=== PATIENT | female | born 1975 | race African-American/Black ===

== ENCOUNTER 2018-05-17 05:54 | Inpatient (IN) ==
[2018-05-13 13:57] LABS: Basophils % 0.4 % (0.0-0.8); Eosinophils # 0.1 10*3/uL (0.0-0.87); Eosinophils % 1.6 % (0.00-10.9); Hematocrit 33.7 VOL% (35.7-47.0); Hemoglobin 10.2 GM/DL (12.0-16.0); Immature Granulocytes % 0.4 %; Immature Granulocytes Absolute 0.03 #; Lymphocytes % 26.7 % (21.3-54.2); Mean Corpuscular HGB Conc 30.3 GM/DL (32-36); Mean Corpuscular Hemoglobin 23 PG (27-34); Mean Corpuscular Volume 76.9 FL (87-102); Mean Platelet Volume 9.6 FL (9.6-12.0); Monocytes # 0.4 10*3/uL (0.11-0.8); Monocytes % 4.8 % (1.7-12.7); Neutrophils % 66.1 % (38.7-73.9); Platelet Count 441 T/CUMM (130-400); Red Blood Count 4.38 MC/CUMM (3.8-5.5); Red Cell Distribution Width 16.6 % (9.3-17.3); White Blood Count 7.5 T/CUMM (4-12)
[2018-05-13 14:03] LABS: Apearance,Urine CLEAR (Clear); Bilirubin,Urine Negative (Negative); Blood, Urine Negative (Negative); Glucose,Urine (UA) Negative (Negative); Ketones,Urine Negative (Negative); Mucus,Urine Occasional /LPF (Occasional); Nitrite,Urine Negative (Negative); Protein,Urine Negative; RBC,Urine <1 /HPF (0-4); Squamous Epithelial Cell,Urine Occasional /HPF (0-10); Urine Color Yellow (Yellow); Urine Specific Gravity 1.023 (1.001-1.035); Urine Urobilinogen < 2.0 EU/DL (0.2-1.0)
[2018-05-13 14:26] LABS: Alanine Aminotransferase 30 U/L (13-56); Albumin 3.3 G/DL (3.4-5.0); Alkaline Phosphatase 62 U/L (45-117); Aspartate Amino Transferase 20 U/L (0-37); Bilirubin,Total < 0.39 MG/DL (0.2-1.0); Blood Urea Nitrogen 12 MG/DL (7-18); Calcium 8.3 MG/DL (8.5-10.1); Cholesterol 207 MG/DL (50-200); Glucose 124 MG/DL (74-106); HDL Cholesterol 39 MG/DL (40-60); Osmolality,Calculated 279.4 MOS/KG (273-304); Potassium 3.6 MMOL/L (3.5-5.1); Risk Ratio 5.31; Sodium 140 MMOL/L (136-145); Total Protein 7.8 G/DL (6.4-8.3); Triglycerides 99 MG/DL (2-150); VLDL CHOLESTEROL 19.8 MG/DL
[2018-05-13 15:33] LABS: HIV Antigen/Antibody Result Nonreactive (Nonreactive)
[~2018-05-17 05:54] MED LIST: AMPICILLIN/SULBACTAM 3,000 MG VIAL ONE; AMPICILLIN/SULBACTAM 3,000 MG in SODIUM CHLORIDE 0.9% 100 ML IV ONE
[2018-05-17] MEDS ORDERED: LACTATED RINGERS 1,000 ML IV SCH (06:00)
[2018-05-17] MEDS ORDERED: AMPICILLIN/SULBACTAM 3,000 MG in SODIUM CHLORIDE 0.9% 100 ML IV ONE (06:30)
[2018-05-17] MEDS ORDERED: FAMOTIDINE 20 MG TABLET ONE (08:15)
[2018-05-17] MEDS ORDERED: DIAZEPAM 5 MG TABLET ONE (08:15)
[2018-05-17] MEDS ORDERED: DIAZEPAM 5 MG TABLET PO STA (08:18)
[2018-05-17] MEDS ORDERED: FAMOTIDINE 20 MG TABLET PO STA (08:18)
[2018-05-17] MEDS ORDERED: HYDROmorphone 2 MG/1 ML VIAL ONE (09:34)
[2018-05-17] MEDS ORDERED: SUGAMMADEX 200 MG/2 ML VIAL IV ONE (10:44)
[2018-05-17] MEDS ORDERED: DOCUSATE SODIUM 100 MG CAPSULE PO PRN (11:16)
[2018-05-17] MEDS ORDERED: ONDANSETRON 4 MG/2 ML VIAL IV PRN ×2 (11:16→12:05)
[2018-05-17] MEDS ORDERED: BENZOCAINE/MENTHOL LOZENGE 18/BOX PO PRN (11:16)
[2018-05-17] MEDS ORDERED: BISACODYL 10 MG SUPP RECTAL PRN (11:16)
[2018-05-17] MEDS ORDERED: MAGNESIUM HYDROXIDE SUSP 30 ML UDCUP PO PRN (11:16)
[2018-05-17] MEDS ORDERED: ACETAMINOPHEN 325 MG TABLET PO PRN (11:16)
[2018-05-17] MEDS ORDERED: ALBUTEROL/IPRATROPIUM 3 ML NEB RESP TX ONE ×2 (11:33→11:58)
[2018-05-17 11:41] LABS: Apearance,Urine CLEAR (Clear); Bacteria,Urine Occasional /HPF (Few); Bilirubin,Urine Negative (Negative); Blood, Urine Negative (Negative); Glucose,Urine (UA) Negative (Negative); Ketones,Urine Negative (Negative); Mucus,Urine Occasional /LPF (Occasional); Nitrite,Urine Negative (Negative); Protein,Urine Negative; Squamous Epithelial Cell,Urine Occasional /HPF (0-10); Urine Color Yellow (Yellow); Urine Specific Gravity 1.015 (1.001-1.035); Urine Urobilinogen < 2.0 EU/DL (0.2-1.0); WBC,Urine <1 /HPF (0-6)
[2018-05-17] MEDS ORDERED: fentaNYL 100 MCG/2 ML VIAL ONE ×2 (11:50→11:52)
[2018-05-17] MEDS ORDERED: PROPOFOL 200 MG/20 ML VIAL IV ONE (11:51)
[2018-05-17] MEDS ORDERED: GLYCOPYRROLATE 0.4 MG/2 ML VIAL ONE (11:52)
[2018-05-17] MEDS ORDERED: ONDANSETRON 4 MG/2 ML VIAL ONE (11:52)
[2018-05-17] MEDS ORDERED: MIDAZOLAM 2 MG/2 ML VIAL ONE (11:52)
[2018-05-17] MEDS ORDERED: SEVOFLURANE 1 UNIT/15 MINUTE INH ONE (11:52)
[2018-05-17] MEDS ORDERED: DEXAMETHASONE 4 MG/1 ML VIAL ONE (11:52)
[2018-05-17] MEDS ORDERED: PHENYLEPHRINE 1 MG/10 ML SYRINGE IV ONE (11:53)
[2018-05-17] MEDS ORDERED: ALBUTEROL INHALER 8 GM INH ONE (11:53)
[2018-05-17] MEDS ORDERED: ACETAMINOPHEN 1,000 MG/100 ML VIAL IV ONE (11:53)
[2018-05-17] MEDS ORDERED: ROCURONIUM 100 MG/10 ML VIAL IV ONE (11:53)
[2018-05-17] MEDS ORDERED: LACTATED RINGERS 1,000 ML IV ONE (11:53)
[2018-05-17] MEDS: HYDROmorphone 2 MG/1 ML VIAL IV PRN ×4 (12:10→21:20)
[2018-05-17] MEDS: LACTATED RINGERS 1,000 ML IV SCH (16:17)
[2018-05-17] MEDS: ceFAZolin 1,000 MG in SYRINGE 1 EACH IV SCH (18:44)
[2018-05-17] MEDS ORDERED: SIMETHICONE CHEW 80 MG TABLET PO PRN (19:05)
[2018-05-17] MEDS ORDERED: diphenhydrAMINE CAP 25 MG CAPSULE PO PRN (23:56)
[2018-05-18] MEDS: IBUPROFEN 800 MG TABLET PO PRN ×3 (01:54→19:41)
[2018-05-18] MEDS: ceFAZolin 1,000 MG in SYRINGE 1 EACH IV SCH (01:55)
[2018-05-18] MEDS: LACTATED RINGERS 1,000 ML IV SCH (01:57)
[2018-05-18 05:37] LABS: Basophils % 0.2 % (0.0-0.8); Hematocrit 30.1 VOL% (35.7-47.0); Hemoglobin 9.2 GM/DL (12.0-16.0); Immature Granulocytes % 0.3 %; Immature Granulocytes Absolute 0.04 #; Lymphocytes # 1.2 10*3/uL (1.4-4.0); Lymphocytes % 9.3 % (21.3-54.2); Mean Corpuscular HGB Conc 30.6 GM/DL (32-36); Mean Corpuscular Hemoglobin 23 PG (27-34); Mean Corpuscular Volume 76.6 FL (87-102); Mean Platelet Volume 9.7 FL (9.6-12.0); Monocytes # 0.7 10*3/uL (0.11-0.8); Monocytes % 5.4 % (1.7-12.7); Neutrophils # 10.7 10*3/uL (1.4-7.4); Neutrophils % 84.8 % (38.7-73.9); Platelet Count 413 T/CUMM (130-400); Red Blood Count 3.93 MC/CUMM (3.8-5.5); Red Cell Distribution Width 16.3 % (9.3-17.3); White Blood Count 12.6 T/CUMM (4-12)
[2018-05-18] MEDS ORDERED: METOCLOPRAMIDE 10 MG/2 ML VIAL IV SCH (08:00)
[2018-05-18] MEDS: MAGNESIUM HYDROXIDE SUSP 30 ML UDCUP PO SCH ×3 (09:53→20:59)
[2018-05-18] MEDS: METOCLOPRAMIDE 10 MG TABLET PO SCH ×2 (09:53→18:01)
[2018-05-18] MEDS ORDERED: MAGNESIUM CITRATE 300 ML BOTTLE PO ONE (17:36)
[2018-05-19] MEDS: METOCLOPRAMIDE 10 MG TABLET PO SCH ×3 (01:47→17:39)
[2018-05-19] MEDS: MAGNESIUM HYDROXIDE SUSP 30 ML UDCUP PO SCH (08:12)
[2018-05-19] MEDS: IBUPROFEN 800 MG TABLET PO PRN (15:09)
[2018-05-19 15:41] VITALS: BP 149/90
== END 2018-05-19 17:50 | disposition home or self-care (01) | DRG 743 ==
LOC: N.SDSINP 05:54 → N.OB 12:51
PROVIDERS: ADMIT Obstetrics & Gynecology; ATTEND Obstetrics & Gynecology